=== PATIENT | male | born 1950 | race Caucasian/White ===

== ENCOUNTER 2018-01-24 14:25 | Inpatient (IN) | payer OTHER ==
[~2018-01-24] VITALS: Ht 182.9 cm; Wt 90.7 kg
[~2018-01-24 14:25] MED LIST: ALLOPURINOL300 MG PO; ATIVAN0.5 MG PO; ATIVAN1 M1 PO; ATORVASTATIN CA10 MG PO; BYSTOLIC 5MG5 MG PO; COLCRYS0.6 MG PO; FISH OIL CONC1000 MG PO; FOLIC ACID 1 MG PO; LYRICA100 MG PO; METHADONE HCL10 M1 PO; PRILOSEC OTC20 MG PO; TRAZODONE150 MG PO; VITAB121000 PO; VITAMIN B1100 MG PO; VITAMIN D1000 IU PO
[2018-01-24 15:38] LABS: ABSOLUTE BASOPHIL COUNT 0 /CUMM (0.0-0.2); ABSOLUTE EOSINOPHIL COUNT 0 /CUMM (0.0-0.7); ABSOLUTE GRANULOCYTE CT 5.7 /CUMM (1.4-6.5); ABSOLUTE MONOCYTE COUNT 0.5 /CUMM (0.10-0.60); BASOPHIL % 0.5 % (0.0-2.0); EOSINOPHIL % 0.4 % (0-5); GRANULOCYTE % 68.6 % (42.2-75.2); HEMATOCRIT 46.2 % (42-52); MEAN CORPUSCULAR HGB 31.1 PG (27.0-31.0); MEAN CORPUSCULAR HGB CONC 33.5 G/DL (33.0-37.0); MEAN CORPUSCULAR VOLUME 93.1 FL (80.0-94.0); MEAN PLATELET VOLUME 7.7 FL (7.4-10.4); PLATELET COUNT 270 /CUMM (130-400); RBC DISTRIBUTION WIDTH 14.3 % (11.5-14.5); RED BLOOD CELL CT 4.97 /CUMM (4.70-6.10); WHITE BLOOD CELL COUNT 8.3 /CUMM (4.8-10.8)
--- NOTE | 2018-01-24 15:52 | ED PSYCHIATRIC COMPLAINT ---
History of Present Illness General Chief Complaint: ETOH/Drug Related Complaint Stated Complaint: ETOH DETOX Source: patient, old records Exam Limitations: no limitations Allergies Coded Allergies: NO KNOWN ALLERGIES (10/04/16) Reconcile Medications Atorvastatin Calcium (Lipitor) 10 MG TAB 1 TAB PO DAILY CHOLESTEROL (Reported ) LORazepam (Ativan) 1 MG TABLET 1 TAB PO SI ALCOHOL WITHDRAWAL TAKE ONE TAB TWICE A DAY(10/08/16) THAN ONE TAB ON (10/09/16) THEN STOP Methadone Hydrochloride (Methadone HCl) 10 MG TABLET 2 TAB PO DAILY MAINTENCE (Reported) Nebivolol (Bystolic) 5 MG TAB 1 TAB PO DAILY BP (Reported) Omeprazole (Prilosec Otc) 20 MG TCP 40 MG PO DAILY HEARTBURN (Reported) Pregabalin (Lyrica) 100 MG CAPSULE 100 MG PO TID NEUROPATHY (Reported) Triage Note: PT STATES HE NEEDS DETOX FROM ETOH. PT STATES HE IS GOING THROUGH WITHDRAWEL. PT LAST DRINK WAS AT 0900 TODAY. PT UNSURE OF HIS LAST DETOX. PT DENIES DRUG USE. PT DENIES SI/HI THOUGHTS. Triage Nurses Notes Reviewed? yes Onset: Abrupt Duration: week(s): (1), constant Timing: recent history Severity: severe Severity Numbers: 10 Associated Symptoms: ingestion HPI: 67-year-old male with history of hypertension high cholesterol alcohol abuse former patient of pain management presents to the ER requesting detox or alcohol. He states he had an unknown quantity of wine this morning around 9:00. Patient states that he has gone through withdrawal in the past he had a seizure "many years ago" he denies any recent detox attempts. No abdominal pain chest pain he is complaining however of generalized body cramping and feeling anxious. he denies SI HI. (Brian Patrick) Vital Signs & Intake/Output Vital Signs & Intake/Output Vital Signs Date Time Temp Pulse Resp B/P B/P Pulse O2 O2 Flow FiO2 Mean Ox Delivery Rate 01/24 2350 96.7 97 20 107/68 95 Room Air 01/240 97.9 86 18 141/76 01/24 2220 97.9 80 18 141/76 96 Room Air 01/24 1950 97.3 83 20 132/63 01/24 1950 97.3 83 20 132/63 96 Room Air 01/24 1734 96.5 77 19 151/85 93 Room Air 01/24 1530 97.2 79 18 175/136 97 Room Air ED Intake and Output 01/25 0000 01/24 1200 Intake Total 0 Output Total Balance 0 Intake, Oral 0 Patient 200 lb Weight Weight Reported by Patient Measurement Method (Noreen COMER,Pindea Corrales) Past History Travel History Traveled to [place] past 21 day No Medical History Any Pertinent Medical History? see below for history Neurological: seizure, NEUROPATHY EENT: NONE Cardiovascular: hypertension Respiratory: NONE Gastrointestinal: GERD Hepatic: hepatitis C Renal: NONE Musculoskeletal: gout, osteoarthritis Psychiatric: alcohol dependence Endocrine: NONE Blood Disorders: NONE Cancer(s): NONE COMPRESSION MOLDING MACHINE OPERATOR/Reproductive: NONE History of MRSA: No History of VRE: No History of CDIFF: No Pneumonia Vaccine: 07/17/16 Influenza Vaccine: 07/17/16 Surgical History Surgical History: non-contributory Psychosocial History Who do you live with Spouse Services at Home None What is your primary language Azeri Tobacco Use: Current Daily Use Daily Tobacco Use Amount/Type: => 5 Cigarettes daily ETOH Use: alcoholic Illicit Drug Use: denies illicit drug use Family History Family History, If Any: MOTHER FH: breast cancer PATERNAL GRANDMOTHER FH: Parkinson's disease Hx Contributory? No (Brian Patrick) Review of Systems Review of Systems Constitutional: Reports: see HPI. Comments Review of systems: See HPI, All other systems negative. Constitutional, no chills no fever, HEENT: no sore throat no congestion Cardiovascular: No chest pain , Skin: no rashes, no change in skin Respiratory: No dyspnea no cough no sputum GI: No nausea no vomiting, no diarrhea, : No dysuria Muscle skeletal: No joint pain, no back pain, no neck pain, Neurologic: , no headache Heme/endocrine: No bruising Immunology: No lymphadenopathy (Brian Patrick) Physical Exam Physical Exam General Appearance: well developed/nourished, no apparent distress, alert Neurological/Psychiatric: no motor/sensory deficits, awake Comments: Well-developed well-nourished person in no acute distress HEENT: Normal EENT exam; PERRL, EOMI, HEAD is atraumatic. moist mucous membranes. Neck: Supple, normal range of motion Back: Full range of motion Cardiovascular: Regular rate and rhythms no murmurs rubs or gallops, normal JVP Respiratory: No respiratory distress. Patient speaking in full complete sentences. Breath sounds clear to auscultation bilaterally: NO W/R/R Abdomen: Soft, nontender nondistended, no appreciable organomegaly. Normal bowel sounds. No rebound/guarding, Extremity: No edema, full range of motion of extremities, Neuro: Alert oriented x3, motor sensory normal, cranial nerves II through XII grossly intact. There were no obvious focal neurologic abnormalities. Skin: No appreciable rash on exposed skin, skin is warm and dry. Psych: Mood and affect is normal, memory and judgment is normal. SAD PERSONS Done? patient not suicidal (Fide SHAFFER,Brian) Progress Differential Diagnosis: drug intoxication, drug overdose, drug withdrawal, electrolyte abnormality, Pancreatitis Hand-Off Endorsed To: Fer COMER,Willy Infante Endorsed Time: 2300 Pending: other (sobriety, ciwa) (Fide SHAFFER,Brian) Plan of Care: Orders Procedure Date/time Status Patient Data 01/25 0040 Active ED Holding Orders 01/25 0004 Active Admit to inpatient 01/25 0004 Active Code Status 01/25 0004 Active Regular Diet 01/24 D Active Patient Data 01/24 1823 Active CIWA 01/24 1550 Active URINE DRUG SCREEN FOR ER ONLY 01/24 1438 Complete LIPASE 01/24 1438 Complete ETHANOL 01/24 1438 Complete COMPREHENSIVE METABOLIC PANEL 01/24 1438 Complete CBC WITHOUT DIFFERENTIAL 01/24 1438 Complete Current Medications Sig/Yonny Start time Last Medication Dose Stop Time Status Admin Sodium Chloride 1,000 ML BOLUS ONE 01/25 0015 AC 01/25 (Normal Saline 0.9%) 01/25 0114 0036 Laboratory Tests 01/24/18 1921: Urine Opiates Screen < 100, Methadone Screen 182, Barbiturate Screen < 60, Ur Phencyclidine Scrn < 6.00, Amphetamines Screen < 100, U Benzodiazepines Scrn < 85, Urine Cocaine Screen < 50, Urine Cannabis Screen > 80.00 H 01/24/18 1531: Anion Gap 17 H, Estimated GFR > 60, BUN/Creatinine Ratio 10.0, Glucose 106 H, Calcium 9.3, Total Bilirubin 0.6, AST 246 H, ALT 242 H, Alkaline Phosphatase 70, Total Protein 7.9, Albumin 5.0, Globulin 2.9, Albumin/Globulin Ratio 1.7, Lipase 105, CBC w Diff NO MAN DIFF REQ, RBC 4.97, MCV 93.1, MCH 31.1 H, MCHC 33.5, RDW 14.3, MPV 7.7, Gran % 68.6, Lymphocytes % 24.5, Monocytes % 6.0, Eosinophils % 0.4, Basophils % 0.5, Absolute Granulocytes 5.7, Absolute Lymphocytes 2.0, Absolute Monocytes 0.5, Absolute Eosinophils 0, Absolute Basophils 0, Serum Alcohol 292.0 1600 Labs ordered old records reviewed patient tremulous, Ativan 2 mg by mouth ordered 1834 patient resting in no apparent distress 1929 patient actively vomiting Zofran and Ativan ordered as he is not tremulous. ciwa 11 2129 patient resting in no acute distress, currently sleeping 2300 case d/w and signed out to dr fer porter sobriety, [facility] (Brian Patrikc) (Noreen COMER,Pineda Corrales) Departure Departure Disposition: STILL A PATIENT Condition: Stable Clinical Impression Primary Impression: Alcohol withdrawal Referrals: Yair COMER,Eric Go (PCP/Family) Departure Forms: Customer Survey General Discharge Information Observation Note Spoke With: Pineda Sorto MD Place Patient In: Non-ED OBS Care Area Rationale for Observation: My rational for observation is as follows CIWA PROTOCOL, IV HYDRATION, TREND LABS (Brian Patrick) Admission Note Spoke With: Nely Hunt MD Documentation of Exam: Documentation of any treatments & extenuating circumstances including Concerns Regarding Discharge (functional status, medication knowledge or non-compliance, living conditions, etc.) that warrant an admission rather than observation: pt with ciwa of 15, distant seizure history, meets criteria for medical detox. PA/COSTUME DESIGN TEACHER Co-Sign Statement Statement: ED Attending supervision documentation- [x] I saw and evaluated the patient. I have also reviewed all the pertinent lab results and diagnostic results. I agree with the findings and the plan of care as documented in the PA's/COSTUME DESIGN TEACHER's documentation. 01/25/18, 23:50... pt with tremors, otherwise awake and alert with benign exam... pt merits consideration for detox. [] I have reviewed the ED Record and agree with the PA's/COSTUME DESIGN TEACHER's documentation. [] Additions or exceptions (if any) to the PAs/COSTUME DESIGN TEACHER's note and plan are summarized below: [] (Fer COMER,Willy Infante) ED Attending Observation Initial Observation Note: I have seen and personally examined BRAYAN BANUELOS on 01/24/18 at 1823. I agree with the current emergency department documentation. The disposition (admission or discharge) is uncertain at this time, he needs a period of observation for the following reason(s): Acute alcohol intoxication with the possibility of acute alcohol withdrawal/seizures/delirium tremens. The ED Nurse caring for this patient has been personally informed as to what the patient is being observed for. (Noreen COMER,Pineda Corrales)
[2018-01-24 19:50] VITALS: BP 132/63
[2018-01-24 22:20] VITALS: BP 141/76
[2018-01-25] VITALS (8 sets, daily range): BP systolic 138–173; BP diastolic 66–93
--- NOTE | 2018-01-25 00:49 | History & Physical ---
Wilver Quezada 01/25/18 0048: General Information and HPI MD Statement: I have seen and personally examined BRAYAN BANUELOS and documented this H&P. The patient is a 67 year old M who presented with a patient stated chief complaint of Alcohol detox Source of Information: patient, old records Exam Limitations: no limitations History of Present Illness: 67-year-old gentleman, current smoker, with past medical history of alcohol use disorder multiple admissions for alcohol detox and history of alcohol withdrawal seizures, IV drug use, hypertension, gout, osteoarthritis, neuropathy brought himself to the ED for alcohol detox. Patient states that he has been drinking 1-1/2 bottle of wine with 25 ounces of beer every day for the past several months. His last admission for alcohol withdrawal was September 2016 and he states that as he was discharged from here he just started drinking and there are no episodes where he stopped taking alcohol. His last drink was around 9 AM yesterday. He decided to come into the hospital as he was not feeling well. Last few days he was having decreased by mouth intake, subjective fevers associated with diaphoresis and nausea. States that he took methadone 1:30 milligrams tablet and another 20 mg tablet from his friend last week, and used marijuana 2 days ago. Denies shortness of breath, fever, vomiting, involuntary movements, syncope, loss of consciousness, life stressors, suicidal or homicidal ideation. Stated that he is not very depressed and would not like to have that addressed at this time. Allergies/Medications Allergies: Coded Allergies: NO KNOWN ALLERGIES (10/04/16) Home Med list Atorvastatin Calcium 10 MG TABLET 1 TAB PO DAILY hld (Reported) Cholecalciferol (Vitamin D3) (Vitamin D) 1,000 UNIT TABLET (Unknown Dose) PO DAILY SUPPLEMENT (Reported) Hydrochlorothiazide 12.5 MG CAPSULE (Unknown Dose) PO DAILY HTN (Reported) LORazepam (Ativan) 1 MG TABLET 1 TAB PO SI ALCOHOL WITHDRAWAL TAKE ONE TAB TWICE A DAY(10/08/16) THAN ONE TAB ON (10/09/16) THEN STOP Methadone Hydrochloride (Methadone HCl) 10 MG TABLET 2 TAB PO DAILY MAINTENCE (Reported) Nebivolol HCl (Bystolic) 10 MG TABLET 1 TAB PO DAILY Hypertension (Reported) Omeprazole (Prilosec Otc) 20 MG TCP 40 MG PO DAILY HEARTBURN (Reported) Pregabalin (Lyrica) 100 MG CAPSULE 1 CAP PO TID neuropathy (Reported) Compliance With Home Meds: GOOD Past History Travel History Traveled to [place] past 21 day No Medical History Neurological: seizure, NEUROPATHY EENT: NONE Cardiovascular: hypertension Respiratory: NONE Gastrointestinal: GERD Hepatic: hepatitis C Renal: NONE Musculoskeletal: gout, osteoarthritis Psychiatric: alcohol dependence Endocrine: NONE Blood Disorders: NONE Cancer(s): NONE SENIOR ELECTRICAL ENGINEER/Reproductive: NONE History of MRSA: No History of VRE: No History of CDIFF: No Pneumonia Vaccine: 07/17/16 Influenza Vaccine: 07/17/16 Surgical History Surgical History: non-contributory Past Family/Social History Family History Relations & Conditions if any MOTHER FH: breast cancer PATERNAL GRANDMOTHER FH: Parkinson's disease Psychosocial History Who Do You Live With? spouse Services at Home: None Primary Language: [place] Citizen Smoking Status: Current Everyday Smoker ETOH Use: alcoholic Illicit Drug Use: denies illicit drug use Review of Systems Review of Systems Constitutional: Reports: chills, fever. Denies: diaphoresis, malaise, weakness, unexplained weight loss. Cardiovascular: Denies: chest pain, edema, orthopena, palpitations, peripheral edema, syncope. Respiratory: Denies: cough, hemoptysis, orthopnea, short of breath, sputum production, stridor, wheezing. GI: Denies: abdominal pain, bloating, constipation, diarrhea, distention, bowel incontinence, melena, nausea, bloody stool, changes in stool, vomiting, steatorrhea. Genitourinary: Denies: discharge, dysuria, frequency, hematuria, hesitation, nocturia, pain, urgency. Exam & Diagnostic Data Last 24 Hrs of Vital Signs/I&O Vital Signs Date Time Temp Pulse Resp B/P B/P Pulse O2 O2 Flow FiO2 Mean Ox Delivery Rate 01/25 0200 97.9 93 18 150/78 97 Room Air 01/24 2350 96.7 97 20 107/68 95 Room Air 01/24 2220 97.9 86 18 141/76 01/24 2220 97.9 80 18 141/76 96 Room Air 01/24 1950 97.3 83 20 132/63 01/24 1950 97.3 83 20 132/63 96 Room Air 01/24 1734 96.5 77 19 151/85 93 Room Air 01/24 1530 97.2 79 18 175/136 97 Room Air Intake & Output 01/25 0800 01/25 0000 01/24 1600 Intake Total 1000 0 Output Total Balance 1000 0 Intake, IV 1000 Intake, Oral 0 Patient 200 lb Weight Weight Reported by Patient Measurement Method Physical Exam General Appearance Alert, Oriented X3, Cooperative, No Acute Distress Skin No Rashes, No Breakdown HEENT Atraumatic, PERRLA, EOMI, Mucous Membr. moist/pink Neck Supple Lymphatic Cervical nl Cardiovascular Regular Rate, Normal S1, Normal S2 Lungs Clear to Auscultation, Normal Air Movement Extremities No Edema Assessment/Plan Assessment: 67-year-old gentleman, current smoker, with past medical history of alcohol use disorder multiple admissions for alcohol detox and history of alcohol withdrawal seizures, IV drug use, hypertension, gout, osteoarthritis, here for alcohol detox. Problem list Alcohol Withdrawal Hypertension Transaminitis Chronic hyponatremia Plan: Admitted to general medicine floor, vitals per protocol Received 12mg of Ativan in the ED, continue scheduled 2 mg every qhr Protocol Will start banana bag Will continue home medication of Bystolic, atorvastatin, Lyrica, hydrochlorothiazide Will hold statin secondary to transaminitis, trend LFTs/BEP heart healthy diet DVT prophylaxis subcutaneous Lovenox full Code As Ranked By This Provider Problem List: 1. ALCOHOL WITHDRAWAL 2. Hypertension Core Measures/Misc (07/03) Acute Coronary Syndrome ACS Diagnosis: No Congestive Heart Failure Congestive Heart Failure Diagnosis No Cerebrovascular Accident CVA/TIA Diagnosis: No VTE (View Protocol) VTE Risk Factors Age>40 No Mechanical VTE Prophylaxis d/t N/A MechProphylax Ordered No VTE Pharm Prophylaxis d/t NA PharmProphylax ordered Sepsis (View protocol) Sepsis Present: No Nely Hunt 01/25/18 0532: Attending MD Review Statement Attending Statement Attending MD Statement: examined this patient, discuss w/resident/PA/LIVESTOCK PRODUCER, agreed w/resident/PA/LIVESTOCK PRODUCER, reviewed EMR data (avail), reviewed images, amended to note Attending Assessment/Plan: CC: Alcohol detox PMH: Hep C S/P treatment, alcoholism, alcohol withdrawal seizures, HTN, gout, history of IV drug use Patient came to ER requesting detox. Patient had significant alcohol intake every day, has history of alcohol withdrawal seizures in the past. His last drink was 9 AM before coming to ER. He denies homicidal or suicidal ideation, denies any IV drug use currently. He currently feels shaky, dry heaving, decreased oral intake, has diarrhea but otherwise complete ROS unremarkable. Vitals: Afebrile, pulse 79, RR 18, blood pressure 156/85, saturating 97% on room air. On exam: A O 3, cooperative, no acute distress, neck supple, JVD normal, no lymphadenopathy, mucosa moist, no focal neurological deficit,Mild tremors , no dependent edema, no obvious skin rashes or inflammation CVS: S1-S2, RRR. RS: Clear to auscultate bilaterally. Abdomen: Soft, NT, ND, bowel sounds present. Assessment and plan 67-year-old male with above-mentioned past medical history presented in ER for alcohol detox, examination is unremarkable except mild tremors, patient asked for Ativan. Patient has mild hyponatremia, transaminitis with AST 246 and ALT 242, bilirubin 0.6 and alkaline phosphatase 70. Lipase is 105. His sit tomorrow: Was 292. He never had ICU admission for DTs but has history of alcohol related seizure approximately 5-10 years back, he is not clear about that. + Alcohol detox + Transaminitis - Admit to general medicine - Continue scheduled Ativan PO 2 milligram every 8 - Continue when necessary Ativan according to CIWA protocol - PO thiamine - PO folic acid - Check magnesium and phosphorus, today and tomorrow, replace if low - Seizure precaution - DVT prophylaxis - Adequate pain control - Continue gentle hydration - Continue all oral antihypertensives
[2018-01-25] MEDS ORDERED: HYDROCHLOROTH12.5 M3 PO (02:10)
[2018-01-25] MEDS ORDERED: VITAMIN D1000 UNIT PO (02:11)
[2018-01-25] MEDS ORDERED: BYSTOLIC10 M1 PO (03:57)
[2018-01-25] MEDS ORDERED: ATORVASTATIN CA10 M1 PO (03:57)
[2018-01-25] MEDS ORDERED: LYRICA100 M1 PO (04:00)
--- NOTE | 2018-01-25 07:20 | PN- Housestaff ---
Lee Ortega 01/25/18 0719: Subjective Follow-up For: Alcohol withdrawal Transaminitis Complaints: feeling anxious Subjective: There have been no acute events overnight. This morning Mr. Rodriguez states that he feels anxious. He denies any visual/ tactile/auditory hallucinations at this time. Patient denies any fevers, chills, chest pain, nausea, abdominal pain. CIWA scores overnight have ranged between 4 and 18 Review of Systems Constitutional: Reports: see HPI. EENTM: Reports: no symptoms. Cardiovascular: Reports: no symptoms. Respiratory: Reports: no symptoms. Gastrointestinal: Reports: no symptoms. Genitourinary: Reports: no symptoms. Musculoskeletal: Reports: see HPI. Skin: Reports: no symptoms. Neurological/Psychological: Reports: see HPI. Objective Last 24 Hrs of Vital Signs/I&O Vital Signs Date Time Temp Pulse Resp B/P B/P Pulse O2 O2 Flow FiO2 Mean Ox Delivery Rate 01/25 1659 99.0 92 20 144/88 95 Room Air 01/25 1650 99.0 92 20 144/88 01/25 1411 98.5 90 18 138/92 01/25 1411 98.5 90 18 138/92 94 Room Air 01/25 1236 99.1 85 20 173/82 01/25 1230 99.1 85 20 173/82 97 Room Air 01/25 1115 97.8 86 20 150/70 01/25 1110 97.8 86 20 150/70 96 Room Air 01/25 0915 97.8 89 20 146/66 01/25 0915 97.8 89 20 146/66 96 Room Air 01/25 0900 97.8 88 20 144/66 01/25 0815 97.8 88 20 144/66 01/25 0807 97.8 88 20 144/66 95 01/25 0550 97.5 96 20 166/69 01/25 0550 97.5 96 20 166/69 95 Room Air 01/25 0420 98.3 91 18 159/83 94 Room Air 01/25 0200 97.9 93 18 150/78 97 Room Air 01/24 2350 96.7 97 20 107/68 95 Room Air 01/24 2220 97.9 86 18 141/76 01/24 2220 97.9 80 18 141/76 96 Room Air 01/24 1950 97.3 83 20 132/63 01/24 1950 97.3 83 20 132/63 96 Room Air Intake & Output 01/25 1600 01/25 0800 01/25 0000 Intake Total 1000 0 Output Total Balance 1000 0 Intake, IV 1000 Intake, Oral 0 Physical Exam General Appearance: Alert, Cooperative, No Acute Distress, patient is noticeably tremulous but AAO 3, comfortable and in no acute distress Skin: No Breakdown Skin Temp/Moisture Exam: Hot/Diaphoretic HEENT: Mucous Membr. moist/pink Neck: Supple Cardiovascular: Regular Rate, Normal S1, Normal S2 Lungs: Clear to Auscultation, Normal Air Movement Abdomen: Normal Bowel Sounds, Soft, No Tenderness Neurological: Normal Speech, Normal Tone, Sensation Intact Extremities: No Edema, Normal Pulses Vascular: Pulses Symmetrical Current Medications: Current Medications Sig/Yonny Start time Last Medication Dose Route Stop Time Status Admin Cyanocobalamin/ 1 BAG ONCE ONE 01/25 0300 DC 01/25 Thiamine/Pyridoxine IV 01/25 1059 0342 Dextrose/Water 1,000 ML Enoxaparin Sodium 40 MG DAILY 01/25 1000 AC 01/25 SC 0900 Folic Acid 1 MG DAILY 01/25 1000 AC PO Hydrochlorothiazide 12.5 MG DAILY 01/25 1000 AC 01/25 PO 0900 Lorazepam 0 .STK-MED ONE 01/25 1658 DC .ROUTE Lorazepam 0 .STK-MED ONE 01/25 1246 DC .ROUTE Lorazepam 0 .STK-MED ONE 01/25 1227 DC PO Lorazepam 2 MG Q6 01/25 1200 AC 01/25 PO 1224 Lorazepam 0 .STK-MED ONE 01/25 0827 DC .ROUTE Lorazepam 0 .STK-MED ONE 01/25 0610 DC PO Lorazepam 2 MG Q8 01/25 0600 DC 01/25 PO 0607 Lorazepam 0 .STK-MED ONE 01/25 0549 DC .ROUTE Lorazepam 0 .STK-MED ONE 01/25 0431 DC .ROUTE Lorazepam 0 Q1P PRN 01/25 0300 AC 01/25 IV 1656 Lorazepam 0 .STK-MED ONE 01/25 0038 DC PO Lorazepam 0 .STK-MED ONE 01/25 0038 DC .ROUTE Lorazepam 2 MG ONE ONE 01/25 0015 DC 01/25 IV 01/25 0016 0036 Lorazepam 2 MG ONCE ONE 01/25 15 DC 01/25 PO 01/25 0016 0036 Lorazepam 0 .STK-MED ONE 01/24 1947 DC PO Lorazepam 2 MG ONCE ONE 01/24 1945 DC 01/24 PO 01/24 1946 1950 Nebivolol 10 MG DAILY 01/25 1000 AC 01/25 PO 0900 Nicotine 21 MG DAILY 01/25 1000 AC 01/25 TOP 0900 Omeprazole 20 MG DAILY AC 01/25 0700 AC 01/25 PO 0607 Omeprazole 0 .STK-MED ONE 01/25 0610 DC PO Ondansetron HCl 0 .STK-MED ONE 01/25 1948 DC PO Ondansetron HCl 4 MG ONCE ONE 01/24 1945 DC 01/24 PO 01/24 Pregabalin 100 MG TID 01/25 1000 AC 01/25 PO 1656 Pregabalin 0 .STK-MED ONE 01/25 0827 DC PO Sodium Chloride 1,000 ML BOLUS ONE 01/25 0015 DC 01/25 IV 01/25 0114 0036 Thiamine HCl 50 MG DAILY 01/25 1000 AC PO Thiamine HCl 0 .STK-MED ONE 01/25 0328 DC .ROUTE Last 24 Hrs of Lab/Adán Results Last 24 Hrs of Labs/Mics: Laboratory Tests 01/25/18 0550: Anion Gap 12, Estimated GFR > 60, BUN/Creatinine Ratio 13.8, Total Bilirubin 0.9 , Direct Bilirubin 0.7 H, AST 180 H, ALT 181 H, Alkaline Phosphatase 51, Total Protein 7.1, Albumin 4.2 01/24/181920: Urine Opiates Screen < 100, Methadone Screen 182, Barbiturate Screen < 60, Ur Phencyclidine Scrn < 6.00, Amphetamines Screen < 100, U Benzodiazepines Scrn < 85, Urine Cocaine Screen < 50, Urine Cannabis Screen > 80.00 H Assessment/Plan Assessment: 67-year-old gentleman with a PMH of Alcohol use disorder with multiple admissions for detox, history of withdrawal seizure, IVDA, hepatitis C status post treatment, marijuana use, current tobacco use, HTN, gout, osteoarthritis and neuropathy who presented requesting alcohol detox. Patient's baseline consumption is 1.5 bottles of wine daily. His last admission for alcohol withdrawal was in September 2016. Patient's last drink was 900 a.m. the day before presenting to the ER. Patient admitted to off the street methadone use prior to presenting the ER. He denied any SI/HI. VS on admission: BP 175/136, HR 79, RR 18, SPO2 97% on RA, T 97.2 Pertinent labs and admission: WBC 8.3, H&H 15.5/46.2, Platelets 270, sodium 131, chloride 88, BUN/CR 8/0.8 AST/ALT 246/242 Urine toxicology: Alcohol 292, cannabis > 80.00 Patient will be admitted to the general medicine floor for management of the following problems: 1. Alcohol withdrawal/detox 2. Transaminitis 3. Hypertensive urgency 4. Polysubstance abuse Plan: 1. Alcohol withdrawal/detox * CIWAshave been elevated. Will increase frequency of scheduled Ativan from Q8 TO q6 * Continue with as needed Ativan. If persistent elevation in CIWA score above 15, would consider Librium 25 mg q8 * Banana bag 1, continue with folate and thiamine supplementation * Aspiration precautions 2. Transaminitis * Likely secondary to EtOH use. Trended down at this time 3. Hypertensive urgency * Highly likely due to alcohol withdrawal * Interval improvement at this time. We'll continue with HCTZ 12.5 mg and increase to 25 mg if not well controlled. 4. Polysubstance abuse * Nicotine replacement at this time. Once off Ativan, we'll provide counseling on substance use 5. Regular diet 6. DVT prophylaxis with Lovenox 40 mg subcutaneous daily 7. Full code Problem List: 1. ALCOHOL WITHDRAWAL 2. Transaminitis 3. Hypertensive urgency Pain Ratin Pain Location: NA Pain Goal: Pain 4 or less Pain Plan: Pain pathway Tomorrow's Labs & Rationales: NA DVT/Prophylaxis: pharmacological Consulting Request: Consulting Specialty: Psychiatry Giovanny Jones MD 01/25/18 0015: Attending MD Review Statement Attending Statement Attending MD Statement: examined this patient, discuss w/resident/PA/PALEOLOGY TEACHER, agreed w/resident/PA/PALEOLOGY TEACHER, reviewed EMR data (avail), amended to note Attending Assessment/Plan: The patient was seen and discussed with house staff. Agree with plan of care as outlined.
[2018-01-26] VITALS (9 sets, daily range): BP systolic 150–170; BP diastolic 83–96
--- NOTE | 2018-01-26 09:32 | PN- Housestaff ---
Subjective Follow-up For: Alcohol withdrawal Transaminitis Subjective: The patient was seen and examined. He offers no complaints. Slightly anxious, is tremulous. Denies any hallucinations, headache, dizziness, lightheadedness, nausea, vomiting, chest pain, shortness of breath, abdominal pain, urinary symptoms. Hypertensive to 170s this morning. CIWA score running high(up to 13). Review of Systems Constitutional: Reports: no symptoms. Objective Last 24 Hrs of Vital Signs/I&O Vital Signs Date Time Temp Pulse Resp B/P B/P Pulse O2 O2 Flow FiO2 Mean Ox Delivery Rate 01/26 1443 98.8 83 20 170/94 95 01/26 1317 Room Air 01/26 1149 97.5 98 18 162/96 01/26 1148 97.5 98 18 162/96 96 Room Air 01/26 1104 98.6 89 19 176/96 97 Room Air 01/26 1039 174/97 01/26 0617 97.1 99 20 155/85 01/26 0610 97.1 99 20 155/85 97 01/26 0320 98.5 90 20 158/84 97 Room Air 01/26 0318 98.5 90 20 158/84 01/26 0010 98.0 88 20 153/83 95 Room Air 01/26 0008 98.0 88 20 153/83 01/25 2106 98.9 95 18 159/93 01/25 1659 99.0 92 20 144/88 95 Room Air 01/25 1650 99.0 92 20 144/88 Intake & Output 01/26 1600 01/26 0800 01/26 0000 Intake Total 360 Output Total 200 Balance 160 Intake, IV 0 Intake, Oral 360 Output, Urine 200 Patient 200 lb Weight Physical Exam General Appearance: Alert, Oriented X3, Cooperative, No Acute Distress Skin: No Rashes Skin Temp/Moisture Exam: Warm/Dry Sepsis Skin Exam (color): Normal for Ethnicity HEENT: Atraumatic, PERRLA, EOMI, Mucous Membr. moist/pink Neck: Supple Lymphatic: Cervical nl Cardiovascular: Regular Rate, Normal S1, Normal S2, No Murmurs, Gallops, Rubs Lungs: Clear to Auscultation, Normal Air Movement Abdomen: Normal Bowel Sounds, Soft, No Tenderness, No Hepatospenomegaly, No Masses Neurological: Normal Speech, Normal Tone, Sensation Intact, Hand tremors Extremities: No Clubbing, No Cyanosis, No Edema, Normal Pulses, No Tenderness/ Swelling Vascular: Normal Pulses, Pulses Symmetrical Current Medications: Current Medications Sig/Yonny Start time Last Medication Dose Route Stop Time Status Admin Enoxaparin Sodium 40 MG DAILY 01/25 1000 AC 01/26 SC 1039 Folic Acid 1 MG DAILY 01/25 1000 AC 01/26 PO 1039 Hydrochlorothiazide 12.5 MG DAILY 01/25 1000 AC 01/26 PO 1039 Lorazepam 0 .STK-MED ONE 01/26 1123 DC PO Lorazepam 0 .STK-MED ONE 01/26 0612 DC PO Lorazepam 0 .STK-MED ONE 01/26 0009 DC PO Lorazepam 0 .STK-MED ONE 01/25 2134 DC .ROUTE Lorazepam 0 .STK-MED ONE 01/25 1824 DC PO Lorazepam 0 .STK-MED ONE 01/25 1658 DC .ROUTE Lorazepam 2 MG Q6 01/25 1200 AC 01/26 PO 1118 Lorazepam 0 Q1P PRN 01/25 0300 AC 01/26 IV 1419 Nebivolol 10 MG DAILY 01/25 1000 AC 01/26 PO 1039 Nicotine 0 .STK-MED ONE 01/26 1036 DC TOP Nicotine 21 MG DAILY 01/25 1000 AC 01/26 TOP 1039 Omeprazole 0 .STK-MED ONE 01/26 1036 DC PO Omeprazole 20 MG DAILY AC 01/25 0700 AC 01/26 PO 1039 Pregabalin 0 .STK-MED ONE 01/26 1039 DC PO Pregabalin 100 MG TID 01/25 1000 AC 01/26 PO 1419 Thiamine HCl 50 MG DAILY 01/25 1000 AC 01/26 PO 1039 Assessment/Plan Assessment: This is a 67-year-old gentleman with a PMH of Alcohol use disorder with multiple admissions for detox, possible history of withdrawal seizure, IVDA, hepatitis C status post treatment, marijuana use, current tobacco use, HTN, gout, osteoarthritis and neuropathy who presented requesting alcohol detox. Patient's baseline consumption is 1.5 bottles of wine daily. His last admission for alcohol withdrawal was in September 2016. Patient's last drink was 900 a.m. the day before presenting to the ER. Patient admitted to off the street methadone use prior to presenting the ER. He denied any SI/HI. Problem list/Plan: #Alcohol withdrawal/detox * CIWA have been elevated. Would not taper Ativan further down, c/w 2 MG Ativan PO q6 * Continue with as needed Ativan. If persistent elevation in CIWA score above 15, would consider Librium 25 mg q8 * S/p Banana bag 1, continue with folate and thiamine supplementation, start multivitamins daily * Aspiration precautions #Transaminitis * Likely secondary to EtOH use. Trended down at this time #Hypertensive urgency * Highly likely due to alcohol withdrawal * BP in 170s * Interval improvement at this time. Will increase HCTZ 12.5 mg daily to BID. #Polysubstance abuse * Nicotine replacement at this time. Once off Ativan, we'll provide counseling on substance use * Social consult #Regular diet #DVT prophylaxis with Lovenox 40 mg subcutaneous daily # Full code Problem List: 1. Transaminitis 2. Alcohol intoxication Pain Ratin Pain Location: NA Pain Goal: Remain pain free Pain Plan: NA Tomorrow's Labs & Rationales: BEP INR MG Consulting Request: Consulting Specialty: Psychiatry
[2018-01-27 06:08] VITALS: BP 165/98
--- NOTE | 2018-01-27 07:58 | PN- Housestaff ---
Ever Mccauley 01/27/18 0758: Subjective Follow-up For: Alcohol detox Transaminitis Subjective: The patient was seen and examined. He offers no complaints. Not anxious and without tremors. Has been walking without problems. Denies any hallucinations, headache, dizziness, lightheadedness, nausea, vomiting, chest pain, shortness of breath, abdominal pain, urinary symptoms. His blood pressure has been improving to 160s systolic. He is CIWA ranging 08. Review of Systems Constitutional: Reports: no symptoms. Objective Last 24 Hrs of Vital Signs/I&O Vital Signs Date Time Temp Pulse Resp B/P B/P Pulse O2 O2 Flow FiO2 Mean Ox Delivery Rate 01/27 1423 98.0 88 20 164/90 95 Room Air 01/27 0810 78 160/80 01/27 0608 97.6 85 22 165/98 96 Room Air 01/26 2123 99.0 98 16 150/86 96 Room Air Intake & Output 01/27 1600 01/27 0800 01/27 0000 Intake Total 910 240 480 Output Total 400 Balance 910 -160 480 Intake, IV 10 Intake, Oral 900 240 480 Number 1 Bowel Movements Output, Urine 400 Physical Exam General Appearance: Alert, Cooperative, No Acute Distress Other Physical Findings: Skin: No Rashes Skin Temp/Moisture Exam: Warm/Dry Sepsis Skin Exam (color): Normal for Ethnicity HEENT: Atraumatic, PERRLA, EOMI, Mucous Membr. moist/pink Neck: Supple Lymphatic: Cervical nl Cardiovascular: Regular Rate, Normal S1, Normal S2, No Murmurs, Gallops, Rubs Lungs: Clear to Auscultation, Normal Air Movement Abdomen: Normal Bowel Sounds, Soft, No Tenderness, No Hepatospenomegaly, No Masses Neurological: Normal Speech, Normal Tone, Sensation Intact, No tremors Extremities: No Clubbing, No Cyanosis, No Edema, Normal Pulses, No Tenderness/ Swelling Vascular: Normal Pulses, Pulses Symmetrical Current Medications: Current Medications Sig/Yonny Start time Last Medication Dose Route Stop Time Status Admin Enoxaparin Sodium 40 MG DAILY 01/25 1000 AC 01/27 SC 0810 Folic Acid 1 MG DAILY 01/26 1624 DC 01/26 PO 1803 Folic Acid 1 MG DAILY 01/25 1000 AC 01/27 PO 0810 Hydrochlorothiazide 12.5 MG BID 01/26 2100 AC 01/27 PO 0810 Lorazepam 1.5 MG Q6 01/27 1800 AC 01/27 PO 1810 Lorazepam 2 MG Q8 01/27 1400 DC 01/27 PO 1305 Lorazepam 1 MG Q4P PRN 01/27 1230 AC IV Lorazepam 2 MG Q6 01/25 1200 DC 01/27 PO 0547 Lorazepam 0 Q1P PRN 01/25 0300 DC 01/27 IV 0409 Multivitamins 1 TAB DAILY 01/26 1624 AC 01/27 PO 0810 Nebivolol 10 MG DAILY 01/25 1000 AC 01/27 PO 0810 Nicotine 21 MG DAILY 01/25 1000 AC 01/26 TOP 1039 Omeprazole 20 MG DAILY AC 01/25 0700 AC 01/27 PO 0546 Patient Medication 1 ED ONE ONE 01/27 0945 DC 01/27 Teaching ED 01/27 0946 1013 Pregabalin 100 MG TID 01/25 1000 AC 01/27 PO 1305 Thiamine HCl 50 MG DAILY 01/25 1000 AC 01/27 PO 0810 Last 24 Hrs of Lab/Adán Results Last 24 Hrs of Labs/Mics: Laboratory Tests 01/27/18 0610: Anion Gap 17 H, Estimated GFR > 60, BUN/Creatinine Ratio 15.0, Magnesium 2.2, PT 10.2, INR 0.94 Assessment/Plan Assessment: This is a 67-year-old gentleman with a PMH of Alcohol use disorder with multiple admissions for detox, possible history of withdrawal seizure, IVDA, hepatitis C status post treatment, marijuana use, current tobacco use, HTN, gout, osteoarthritis and neuropathy who presented requesting alcohol detox. Patient's baseline consumption is 1.5 bottles of wine daily. His last admission for alcohol withdrawal was in September 2016. Patient's last drink was 900 a.m. the day before presenting to the ER. Patient admitted to off the street methadone use prior to presenting the ER. He denied any SI/HI. Problem list/Plan: #Alcohol withdrawal/detox: * CIWA improving. Will taper Ativan further down to 2 MG Ativan PO q8 * Continue with folate and thiamine supplementation, multivitamins daily * Psych consult #Transaminitis * Likely secondary to EtOH use. Trended down at this time #Hypertensive urgency * Highly likely due to alcohol withdrawal * BP in 170s * C/W HCTZ 12.5 mg daily to BID. #Polysubstance abuse * Nicotine replacement at this time. Once off Ativan, we'll provide counseling on substance use * Social consult placed, pt refusing any intervention #Heart Healthy #DVT prophylaxis with Lovenox 40 mg subcutaneous daily # Full code Problem List: 1. Alcohol abuse Pain Ratin Pain Location: NA Pain Goal: Remain pain free Pain Plan: NA Tomorrow's Labs & Rationales: BEP to monitor electrolytes CBC to monitor H&H Consulting Request: Consulting Specialty: Psychiatry Giovanny Jones MD 01/27/18 1508: Attending MD Review Statement Attending Statement Attending MD Statement: examined this patient, discuss w/resident/PA/BATTERY WRECKER OPERATOR, agreed w/resident/PA/BATTERY WRECKER OPERATOR, reviewed EMR data (avail), discussed with nursing, discussed with case mgmt, amended to note Attending Assessment/Plan: The patient was seen and discussed with house staff, nursing and case management. Will taper Ativan to q8h today. Patient desires discharge over weekend and has declined IOP or other programs. Continue to follow CIWA.
[2018-01-27 08:26] LABS: PT 10.2 SEC (9.4-12.5)
[2018-01-27 14:23] VITALS: BP 164/90
[2018-01-27 21:56] VITALS: BP 158/110
--- NOTE | 2018-01-27 23:01 | Patient Discharge Instructions ---
Discharge Instructions General Discharge Information You were seen/treated for: Alcohol withdrawal Elevated liver enzymes Special Instructions: -Please follow up with your PCP within a week of discharge. -Please take your medications as instructed. Diet Recommended Diet: Heart Healthy Activity Additional ACTIVITY Info: As tolerated Acute Coronary Syndrome Inclusion Criteria At DC or during hospital stay patient has or had the following: Discharge Core Measures Meds if any: Prescribed or Continued at Discharge Meds if any: NOT Prescribed or Continued at Discharge Congestive Heart Failure Inclusion Criteria At DC or during hospital stay patient has or had the following: Discharge Core Measures Meds if any: Prescribed or Continued at Discharge Meds if any: NOT Prescribed or Continued at Discharge Cerebrovascular accident Inclusion Criteria At DC or during hospital stay patient has or had the following: CVA/TIA Diagnosis No Discharge Core Measures Meds if any: Prescribed or Continued at Discharge Meds if any: NOT Prescribed or Continued at Discharge Venous thromboembolism Discharge Core Measures - Per Current guidelines, there needs to be overlap - treatment for the first 5 days of Warfarin therapy. - If discharged on Warfarin prior to 5 days of - overlap therapy, the patient will need to be - assessed for post discharge needs including - *Post discharge parental anticoagulation - *Warfarin and/or parental anticoagulation education - *Follow up date to check INR post discharge Meds if any: Prescribed or Continued at Discharge Note: Overlap Therapy is Warfarin and Anticoagulant Meds if any: NOT Prescribed or Continued at Discharge
[2018-01-27] MEDS ORDERED: HYDROCHLOROTH12.5 M3 PO (23:07)
[2018-01-27] MEDS ORDERED: ONE DAILY MULT1 EAC2 PO (23:12)
[2018-01-27] MEDS ORDERED: FOLIC ACID1 M1 PO (23:12)
[2018-01-27] MEDS ORDERED: VITAMIN B-150 M1 PO (23:12)
[2018-01-28 06:47] VITALS: BP 156/98
[2018-01-28 08:00] VITALS: BP 142/86
[2018-01-28 08:31] LABS: ABSOLUTE BASOPHIL COUNT 0.1 /CUMM (0.0-0.2); ABSOLUTE EOSINOPHIL COUNT 0.2 /CUMM (0.0-0.7); ABSOLUTE GRANULOCYTE CT 6.2 /CUMM (1.4-6.5); ABSOLUTE LYMPH COUNT 3.4 /CUMM (1.2-3.4); ABSOLUTE MONOCYTE COUNT 1.4 /CUMM (0.10-0.60); BASOPHIL % 0.5 % (0.0-2.0); EOSINOPHIL % 1.4 % (0-5); GRANULOCYTE % 55.2 % (42.2-75.2); HEMATOCRIT 45.8 % (42-52); MEAN CORPUSCULAR HGB CONC 34.4 G/DL (33.0-37.0); MEAN CORPUSCULAR VOLUME 93.1 FL (80.0-94.0); MEAN PLATELET VOLUME 8.4 FL (7.4-10.4); PLATELET COUNT 252 /CUMM (130-400); RBC DISTRIBUTION WIDTH 13.8 % (11.5-14.5); RED BLOOD CELL CT 4.92 /CUMM (4.70-6.10); WHITE BLOOD CELL COUNT 11.3 /CUMM (4.8-10.8)
--- NOTE | 2018-01-28 08:59 | PN- Housestaff ---
See Addendum Subjective Follow-up For: Alcohol detox Transaminitis Subjective: Patient requests to be discharged today Review of Systems Constitutional: Reports: see HPI. Objective Last 24 Hrs of Vital Signs/I&O Vital Signs Date Time Temp Pulse Resp B/P B/P Pulse O2 O2 Flow FiO2 Mean Ox Delivery Rate 01/28 1000 85 18 132/84 01/28 0805 84 142/86 01/28 0800 84 20 142/86 01/28 0647 97.4 72 18 156/98 95 01/27 2156 98.1 76 18 158/110 97 Room Air Intake & Output 01/28 1600 01/28 0800 01/28 0000 Intake Total 240 500 Output Total Balance 240 500 Intake, Oral 240 500 Physical Exam General Appearance: Alert, Oriented X3, Cooperative, Mild Distress Cardiovascular: Regular Rate, Normal S1, Normal S2 Lungs: Clear to Auscultation, Normal Air Movement Abdomen: Normal Bowel Sounds, Soft, No Tenderness Extremities: 2+ radial pulses Current Medications: Current Medications Sig/Yonny Start time Last Medication Dose Route Stop Time Status Admin Enoxaparin Sodium 40 MG DAILY 01/25 1000 DCD 01/28 SC 0806 Folic Acid 1 MG DAILY 01/25 1000 DCD 01/28 PO 0805 Hydrochlorothiazide 12.5 MG BID 01/26 2100 DCD 01/28 PO 0805 Lorazepam 1.5 MG Q6 01/27 1800 DCD 01/28 PO 1121 Lorazepam 1 MG Q4P PRN 01/27 1230 DCD 01/27 IV 2152 Multivitamins 1 TAB DAILY 01/26 1624 DCD 01/28 PO 0804 Nebivolol 10 MG DAILY 01/25 1000 DCD 01/28 PO 0805 Nicotine 21 MG DAILY 01/25 1000 DCD 01/26 TOP 1039 Omeprazole 20 MG DAILY AC 01/25 0700 DCD 01/28 PO 0557 Pregabalin 100 MG TID 01/25 1000 DCD 01/28 PO 0806 Thiamine HCl 50 MG DAILY 01/25 1000 DCD 01/28 PO 0804 Last 24 Hrs of Lab/Adán Results Last 24 Hrs of Labs/Mics: Laboratory Tests 01/28/18 0638: Anion Gap 17 H, Estimated GFR > 60, BUN/Creatinine Ratio 18.0, CBC w Diff NO MAN DIFF REQ, RBC 4.92, MCV 93.1, MCH 32.0 H, MCHC 34.4, RDW 13.8, MPV 8.4, Gran % 55.2, Lymphocytes % 30.5, Monocytes % 12.4 H, Eosinophils % 1.4, Basophils % 0.5, Absolute Granulocytes 6.2, Absolute Lymphocytes 3.4, Absolute Monocytes 1.4 H, Absolute Eosinophils 0.2, Absolute Basophils 0.1 Assessment/Plan Assessment: 67-year-old gentleman with a PMH of Alcohol use disorder with multiple admissions for detox, possible history of withdrawal seizure, IVDA, hepatitis C status post treatment, marijuana use, current tobacco use, HTN, gout, osteoarthritis and neuropathy who presented requesting alcohol detox. Patient's baseline consumption is 1.5 bottles of wine daily. His last admission for alcohol withdrawal was in September 2016. Patient's last drink was 900 a.m. the day before presenting to the ER. Patient admitted to off the street methadone use prior to presenting the ER. He denied any SI/HI. Patient being discharged today with quick Ativan taper. We'll resume his home dose of hydrochlorothiazide 12.5 mg as his hypertension is most likely due to withdrawal Problem list/Plan: #Alcohol withdrawal/detox: * CIWA improving. * Continue with folate and thiamine supplementation, multivitamins daily * Psych consult #Transaminitis * Likely secondary to EtOH use. Trended down at this time #Hypertensive urgency * Highly likely due to alcohol withdrawal * BP in 170s #Polysubstance abuse * Nicotine replacement at this time. Once off Ativan, we'll provide counseling on substance use * Social consult placed, pt refusing any intervention #Heart Healthy #DVT prophylaxis with Lovenox 40 mg subcutaneous daily # Full code Problem List: 1. ALCOHOL WITHDRAWAL Pain Ratin Pain Location: none Pain Goal: Pain 4 or less Pain Plan: pain pathway Tomorrow's Labs & Rationales: none Consulting Request: Consulting Specialty: Psychiatry
[2018-01-28 10:00] VITALS: BP 132/84
[2018-01-28] MEDS ORDERED: VITAMIN B-1100 MG PO ×2 (10:38→10:58)
[2018-01-28] MEDS ORDERED: MULTIVITAMINS1 EAC9 PO (10:38)
[2018-01-28] MEDS ORDERED: FOLIC ACID1 M1 PO ×2 (10:38→10:58)
[2018-01-28] MEDS ORDERED: HYDROCHLOROTH12.5 M3 PO (10:38)
[2018-01-28] MEDS ORDERED: ATIVAN1 M1 PO (11:01)
--- NOTE | 2018-01-29 19:14 | Discharge Summary ---
Hospital Course Course Consulting Request: Consulting Specialty: Psychiatry Allergies: Coded Allergies: NO KNOWN ALLERGIES (NONE 01/27/18) Discharge Instructions Medications at Discharge Discharge Medications: Stop taking the following medications: Methadone Hydrochloride (Methadone HCl) 10 MG TABLET ORAL DAILY LORazepam (Ativan) 1 MG TABLET ORAL See Instructions Qty = 3 Atorvastatin Calcium (Atorvastatin Calcium) 10 MG TABLET ORAL DAILY Qty = 90 Continue taking these medications: Omeprazole (Prilosec Otc) 20 MG TCP 40 Milligram ORAL DAILY Comments: Last Taken: 07/17/15 Time: 0700 Hydrochlorothiazide (Hydrochlorothiazide) 12.5 MG CAPSULE 1 Tablet ORAL DAILY Comments: Last Taken:01/28/18 Time:8:05 AM Cholecalciferol (Vitamin D3) (Vitamin D) 1,000 UNIT TABLET 1 Tablet ORAL DAILY Qty = 1 Comments: NOT GIVEN IN HOSP Nebivolol HCl (Bystolic) 10 MG TABLET 1 Tablet ORAL DAILY Qty = 90 Comments: Last Taken:01/28/18 Time:08:05 AM Pregabalin (Lyrica) 100 MG CAPSULE 1 Capsule ORAL THREE TIMES DAILY Qty = 180 Comments: Last Taken:01/28/18 Time:08:06 AM Start taking the following new medications: Folic Acid (Folic Acid) 1 MG TABLET 1 Tablet ORAL DAILY Qty = 30 No Refills Instructions: . Comments: Last Taken:01/28/18 Time:9:05 AM Thiamine HCl (Vitamin B-1) 100 MG TABLET 1 Tablet ORAL DAILY Qty = 30 No Refills Instructions: . Comments: Last Taken:01/28/18 Time:8:05 AM Multiple Vitamin (Multivitamins) 1 EACH TABLET 1 Tablet ORAL DAILY Qty = 30 No Refills Comments: Last Taken:01/28/18 Time:8:05 AM LORazepam (Ativan) 1 MG TAB 1 Tablet ORAL DAILY Qty = 5 No Refills Instructions: DATE TAB 01/28 2 TAB pm 01/29 1 TAB TWICE A DAY 01/30 1 TAB Comments: Last Taken:01/28/18 Time:11:21 AM
== END 2018-01-28 12:00 | DRG 897 ==
LOC: ERH 14:25 → EDBEDREQSVC 01-25 07:01 → EDBEDREQ 01-25 07:01 → 2NB 01-25 07:06 → ERHI 01-25 07:06 → ENRESERV 01-26 10:20 → 2NB 01-26 11:47 → ENPENDDIS 01-28 11:07 → 2NB 01-28 12:00
PROVIDERS: Internal Medicine; Physician Assistant Medical
DX: F10.239 Alcohol dependence with withdrawal, unspecified (principal); G62.9 Polyneuropathy, unspecified; R56.9 Unspecified convulsions; E87.1 Hypo-osmolality and hyponatremia; I16.0 Hypertensive urgency; F17.200 Nicotine dependence, unspecified, uncomplicated; I10 Essential (primary) hypertension; F19.10 Other psychoactive substance abuse, uncomplicated; M10.9 Gout, unspecified; B18.2 Chronic viral hepatitis C; K21.9 Gastro-esophageal reflux disease without esophagitis; M19.90 Unspecified osteoarthritis, unspecified site
CPT/HCPCS: 2NBSP; ERO; 36415; 80307; 82436; 96361; 96374; 96375; 96376; G0480; J1650; J3101; J3490; J7060